=== PATIENT | female | born 2000 | race Caucasian/White ===

== ENCOUNTER 2022-01-31 11:42 | Emergency (ER) | payer SELFPAY ==
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
--- NOTE | 2022-01-31 11:48 | ED.UPPEXIN ---
HPI - Extremity Injury (Upper) General Stated Complaint: right hand injury Time Seen by Provider: 01/31/22 11:48 Source: patient Mode of arrival: ambulatory Limitations: no limitations PMFSH Comments At the time of my signature, I reviewed and agree with the nursing past medical, surgical, social, and family history. There is no relevant family history pertinent to the patient complaint. Course Course Emergency Course: Portions of this record may have been created with voice recognition software. Level of Care: Express Care Visit Vital Signs Vital signs: Vital signs reviewed Discharge Plan Discharge Follow-up/Referrals: UNKNOWN,DOCTOR [Non-Staff] - Quality NIHSS Nursing Documentation ED NIHSS nursing documentation: reviewed/agree
[2022-01-31 11:55] VITALS: BP 142/88; PULSE 102; RESP 18; TEMP 37.4; O2SAT 98
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
== END 2022-01-31 13:20 | disposition home or self-care (01) ==
PROVIDERS: Emergency Provider Nurse Practitioner Family
DX: R07.89 Other chest pain (principal); S52.514A Nondisplaced fracture of right radial styloid process, initial encounter for closed fracture; S02.2XXA Fracture of nasal bones, initial encounter for closed fracture; S62.662A Nondisplaced fracture of distal phalanx of right middle finger, initial encounter for closed fracture; S00.81XA Abrasion of other part of head, initial encounter; V48.5XXA Car driver injured in noncollision transport accident in traffic accident, initial encounter
CPT/HCPCS: 29125; 29130; 70150; 71046; 73090; 73130; 81025; 99214; A4565; G0463